=== PATIENT | female | born 1960 | race Caucasian/White ===

== ENCOUNTER 2019-04-15 06:24 | Day surgery (SDC) | payer OTHER, SELFPAY ==
--- NOTE | 2019-04-15 | PATH_ITS ---
[facility] Accession Number: [id number] . 01 Material submitted: . cecum - CECAL POLYPS . 02 Diagnosis: Cecum, Polyps: Tubular adenoma in one of two biopsy fragments. MRV 04/16/2019 1110 Local . 02 Electronically signed: . Madhu Mckenzie MD, PhD, Pathologist NPI- [id number] . 01 Gross description: . CECAL POLYPS: Received in formalin are 2 fragment(s) of davis, soft tissue measuring 0.3 x 0.2 x 0.1 cm to 0.2 x 0.1 x 0.1 cm submitted entirely in 1 cassette(s) /QBJ 04/15/2019 2256 Local . 02 Pathologist provided ICD-10: D12.0 . 02 CPT . 152419 Performed at: 01 [facility] [address] [address], [place], [place] [id number] MD Mikel Dow MD Phone: [phone] Performed at: 02 [facility] [address] [place], [place] [id number] MD Kellie Beckham MD Phone: [phone]
[2019-04-15 07:11] VITALS: BP 153/78; PULSE 72; RESP 15; TEMP 36.1; O2SAT 97; BMI 22.4
[2019-04-15] MEDS: SODIUM CHLORIDE 0.9% 1,000 ML 200 ML IV (07:18)
[2019-04-15] MEDS: fentaNYL 250 MCG/5 ML INJ IV (07:44)
[2019-04-15] MEDS: MIDAZOLAM 5 MG/5 ML VIAL IV (07:44)
--- NOTE | 2019-04-15 07:45 | PM.HP.1 ---
History of Present Illness History of Present Illness Date Patient Seen: 04/15/19 Time Patient Seen: 07:45 Chief complaint: [id number] Narrative: Patient with a history of polyps is here for a screening colonoscopy is asymptomatic Patient History Family & Social History Social History: household members spouse Meds Home Medications and Allergies Home Medications Medication Instructions Recorded Confirmed Type alprazolam 0.5 mg PO DAILY #0 05/25/16 04/15/19 History furosemide [Lasix] 20 mg PO PRN PRN #0 05/25/16 04/15/19 History omeprazole 20 mg PO DAILY #0 05/25/16 04/15/19 History metoprolol succinate 50 mg PO DAILY 04/15/19 04/15/19 History tizanidine 2 mg PO BEDTIME 04/15/19 04/15/19 History Allergies Allergy/AdvReac Type Severity Reaction Status Date / Time codeine [CODEINE] AdvReac Mild Vomiting Verified 04/15/19 07:18 Review of Systems Review of Systems ROS Unobtainable: All systems reviewed & are unremarkable except as noted in HPI and below Exam Vital Signs (past 8 hours): - 04/15/19 07:11 Temperature 96.9 F L Pulse Rate 72 Respiratory Rate 15 Blood Pressure 153/78 H Pulse Oximetry 97 Oxygen Delivery Method Room Air Narrative Exam Narrative: Patient is alert and oriented with no complaints Lungs are clear with no rales or wheezes Heart regular rhythm no murmur Abdomen soft no tenderness no masses Rectal be done at colonoscopy Assessment & Plan Assessment & Plan narrative: Patient has had previous colon polyps removed is here for a no other screening colonoscopy she is asymptomatic she understands the procedure very well and has no unanswered questions
--- NOTE | 2019-04-15 08:10 | PM.OP.ENDO ---
Operative Date/Time/Diagnoses Date of procedure: 04/15/19 Time of procedure: 08:10 Pre-op diagnosis: History of colon polyps Post-op diagnosis: same Procedure & Clinicians Study performed: Total colonoscopy to the cecum and biopsy of 2 5 mm polyps in the ascending colon Same procedure as scheduled: Yes Surgeon: Nabeel Wang Procedure Notes SCOAP/Timeout: This was done Procedure in detail: The patient was properly identified during surgical pause she was given a total of 5 mg of Versed and 150 micro g of fentanyl throughout the procedure which was very well tolerated. The flexible fiberoptic colonoscope inserted transanally to the cecum. Patient had 2 very small flat polyps in the ascending colon they were biopsied was very difficult to get to 1 of the as it was behind a fold and I made numerous attempts to get a small fragment of that these both appeared to be 5 mm hyperplastic polyps or very small adenomas. The remainder of the colon is normal. Procedure was well tolerated. Scope withdrawal time: 12 Sedation minutes: 25 Findings: polyp Specimen(s): other (Fragments of 2 polyps ascending colon) Complications: none Impression: Two very small 5 mm polyps ascending colon possibly hyperplastic in nature Post-procedure Recommendations: Colonscopy in 5 years Disposition: PACU
[2019-04-15 08:13] VITALS: BP 129/81; PULSE 83; RESP 19; TEMP 36.6; O2SAT 97
[2019-04-15 08:18] VITALS: BP 143/89; PULSE 83; RESP 15; O2SAT 97
[2019-04-15 08:23] VITALS: BP 137/85; PULSE 80; RESP 10; TEMP 36.6; O2SAT 95
[2019-04-15 08:30] VITALS: BP 146/81; PULSE 76; RESP 20; TEMP 37; O2SAT 96
== END 2019-04-15 08:50 | disposition home or self-care (01) ==
PROVIDERS: PCP Family Medicine; Visit Provider Surgery
PROC: 0DJD8ZZ Inspection of Lower Intestinal Tract, Via Natural or Artificial Opening Endoscopic (ICD-10-PCS; CPT 45378; principal; 2019-04-15 07:45)
DX: Z12.11 Encounter for screening for malignant neoplasm of colon (principal); Z86.010 Personal history of colon polyps; D12.0 Benign neoplasm of cecum
CPT/HCPCS: 45380; 99152; J2250; J3010